=== PATIENT | male | born 1975 | race Hispanic/Latino ===

== ENCOUNTER 2021-05-16 06:47 | Observation (INO) | payer OTHER, SELFPAY ==
[2021-05-16 07:23] LABS: Absolute Lymphocytes (CBC) 1.6 K/uL (0.7-4.9); Basophils % 0.6 % (0-1.3); Hematocrit 42.1 % (39.6-49.0); Lymphocytes % 13.5 % (15.3-44.8); MPV 10.4 fL (7.6-11.3); RBC Red Blood Cell Count 4.38 M/uL (4.33-5.43)
[2021-05-16 07:39] LABS: ALT/SGPT 32 U/L (12-78); AST/SGOT 13 U/L (15-37); Alkaline Phosphatase 98 U/L (45-117); BUN Blood Urea Nitrogen 15 mg/dL (7-18); Bicarbonate 27 mmol/L (21-32); Bilirubin Direct 0.1 mg/dL (0-0.2); Bilirubin Total 0.9 mg/dL (0.2-1.0); Glucose Level 96 mg/dL (74-106); Lipase 86 U/L (73-393); Potassium 3.7 mmol/L (3.5-5.1); Protein, Total 8.1 g/dL (6.4-8.2); Sodium Level 141 mmol/L (136-145)
--- NOTE | 2021-05-16 07:59 | RAD REPORT ---
EXAM DESCRIPTION: CTAbdomen Pelvis W Contrast - 05/16/2021 7:31 am CLINICAL HISTORY: Abdominal pain. ABD PAIN COMPARISON: No comparisons TECHNIQUE: Biphasic CT imaging of the abdomen and pelvis was performed with 100 ml non-ionic IV cont rast. All CT scans are performed using dose optimization technique as appropriate and may include automated exposure control or mA/KV adjustment according to patient size. FINDINGS: The lung bases are clear. Hepatic steatosis. No focal liver lesions are identified. The gallbladder is unremarkable. Adrenal gl ands are unremarkable. Subcentimeter left renal lesion which is likely a cyst. No stones or hydroneph rosis. No bowel obstruction. Dilated appendix with adjacent inflammatory changes. Trace free fluid. N o retroperitoneal lymphadenopathy. The spleen is within normal limits. The pancreas is unremarkable. No fractures identified IMPRESSION: Acute nonperforated appendicitis.
[2021-05-16] MEDS ORDERED: NA CHLORIDE 0.9% 1,000 ML ONE (08:10)
[2021-05-16] MEDS ORDERED: ONDANSETRON 4 MG/2 ML VIAL ONE ×2 (08:10→11:01)
[2021-05-16] MEDS ORDERED: MORPHINE 4 MG/ML SYR ONE ×2 (08:10→12:26)
[2021-05-16] MEDS ORDERED: CEFOXITIN SODIUM 1 GM/VIAL ONE (08:45)
[2021-05-16] MEDS ORDERED: NA CHLORIDE 0.9% 50 ML ONE (08:45)
[2021-05-16] MEDS ORDERED: METRONIDAZOLE 500mg IVPB 500 MG/100 ML BAG IV ONE (08:45)
--- NOTE | 2021-05-16 09:10 | ER ---
Nurse's Notes [facility] Name: Charles Diaz Age: 46 yrs Sex: Male : 1975 Arrival Date: 05/16/2021 Time: 06:47 Bed 30 Private MD: Diagnosis: Unspecified acute appendicitis Presentation: 05/16 06:58 Chief complaint: Patient states: RLQ abdominal pain, tender in all 4 quads, nausea, x 3 jl7 days. Coronavirus screen: Client denies travel out of the [place] in the last 14 days. At this time, the client does not indicate any symptoms associated with coronavirus-19. Ebola Screen: No symptoms or risks identified at this time. Initial Sepsis Screen: Does the patient meet any 2 criteria? No. Patient's initial sepsis screen is negative. Does the patient have a suspected source of infection? No. Patient's initial sepsis screen is negative. Risk Assessment: Do you want to hurt yourself or someone else? Patient reports no desire to harm self or others. Onset of symptoms was May 14, 2021. 06:58 Method Of Arrival: Ambulatory [facility] 06:58 Acuity: MOHSEN 3 jl7 Historical: - Allergies: 07:00 No Known Allergies; jl7 - Home Meds: 07:00 None [Active]; jl7 - PMHx: 07:00 None; jl7 - PSHx: 07:00 None; jl7 - Immunization history:: Client reports having NOT received the Covid vaccine. - Social history:: Smoking status: Patient denies any tobacco usage or history of. Screenin:00 Abuse screen: Denies threats or abuse. Nutritional screening: No deficits noted. ap3 Tuberculosis screening: No symptoms or risk factors identified. Fall Risk None identified. Assessment: 07:59 General: Appears in no apparent distress. comfortable, Behavior is calm, cooperative, ap3 appropriate for age. Pain: Complains of pain in umbilical area Pain currently is 2 out of 10 on a pain scale. at worst was 8 out of 10 on a pain scale. Neuro: Level of Consciousness is awake, alert, obeys commands, Oriented to person, place, time, situation, Appropriate for age. Cardiovascular: Denies chest pain, shortness of breath. Respiratory: Airway is patent Respiratory effort is even, unlabored, Respiratory pattern is regular, symmetrical. GI: Bowel sounds present X 4 quads. Abd is soft and non tender X 4 quads. Reports pain with ingestion of food or water since Thursday05/14/2021. : No signs and/or symptoms were reported regarding the genitourinary system. EENT: No signs and/or symptoms were reported regarding the EENT system. Derm: No signs and/or symptoms reported regarding the dermatologic system. Musculoskeletal: Range of motion: intact in all extremities. Vital Signs: 06:58 Pulse 72; Resp 15; Temp 97.8; Pulse Ox 97% ; Pain 5/10; jl7 07:00 BP 129 / 88; jl7 08:31 Pulse 71; Resp 17; Pulse Ox 100% on R/A; Pain 1/10; ap3 08:32 BP 142 / 90; ap3 ED Course: 06:47 Patient arrived in ED. as 07:00 Triage completed. jl7 07:00 Arm band placed on right wrist. jl7 07:01 Leticia Rockwell FNP-C [facility]. kb 07:01 Marc Carson MD is Attending Physician. kb 07:11 Initial lab(s) drawn, by nh, sent to lab. Inserted saline lock: 20 gauge in right jl7 wrist, using aseptic technique. Blood collected. 07:22 Irma Hall RN is Primary Nurse. ap3 07:31 CT Abd/Pelvis - IV Contrast Only In Process Unspecified. EDMS 08:00 Patient has correct armband on for positive identification. Bed in low position. Call ap3 light in reach. Pulse ox on. NIBP on. Door closed. Noise minimized. 09:09 Aníbal Black MD is Hospitalizing Provider. kb 09:42 No provider procedures requiring assistance completed. Patient admitted, IV remains in ap3 place. Administered Medications: 07:57 Drug: morphine 4 mg Route: IVP; Site: right wrist; ap3 08:30 Follow up: Response: No adverse reaction ap3 07:58 Drug: NS 0.9% 1000 ml Route: IV; Rate: 1000 ml; Site: right wrist; ap3 09:22 Follow up: Response: No adverse reaction; IV Status: Completed infusion ap3 07:58 Drug: Zofran (Ondansetron) 4 mg Route: IVP; Site: right wrist; ap3 08:30 Follow up: Response: No adverse reaction; Nausea is decreased ap3 08:30 Drug: Flagyl (metroNIDAZOLE) 500 mg Volume: 100 ml; Route: IVPB; Rate: 200 ml/hr; ap3 Infused Over: 30 mins; Site: right wrist; 09:21 Follow up: Response: No adverse reaction; IV Status: Completed infusion ap3 09:21 Drug: Mefoxin (cefOXitin) 1 grams Route: IVPB; Infused Over: 30 mins; Site: right wrist;ap3 09:43 Follow up: IV Status: Infusion continued upon admission ap3 Outcome: 09:09 Decision to Hospitalize by Provider. kb 09:43 Admitted to OR accompanied by nurse, via wheelchair, with chart. ap3 09:43 Condition: good 09:43 Discharge instructions given to patient, Instructed on the need for admit, Demonstrated understanding of instructions. 09:43 Patient left the ED. ap3 Signatures: Dispatcher [employer] EDLeticia Gonzales, NIKITAC CARLOTA-Awilda Tony Jahala RN RN jl7 Irma Hall RN RN ap3
--- NOTE | 2021-05-16 09:10 | EDPHYS ---
Physician Documentation [facility] Name: Charles Diaz Age: 46 yrs Sex: Male : 1975 Arrival Date: 05/16/2021 Time: 06:47 Bed 30 Private MD: ED Physician Marc Carson HPI: 05/16 08:27 This 46 yrs old Male presents to ER via Ambulatory with complaints of kb Abdominal Pain. 08:27 The patient presents with abdominal pain that is diffuse. Onset: The symptoms/episode kb began/occurred 3 day(s) ago. The symptoms do not radiate. Associated signs and symptoms: Pertinent positives: nausea, Pertinent negatives: constipation, diarrhea, fever, vomiting. The symptoms are described as constant. Modifying factors: The symptoms are alleviated by nothing, the symptoms are aggravated by pressure. Severity of pain: At its worst the pain was moderate in the emergency department the pain is unchanged. The patient has not experienced similar symptoms in the past. The patient has not recently seen a physician. Historical: - Allergies: 07:00 No Known Allergies; jl7 - Home Meds: 07:00 None [Active]; jl7 - PMHx: 07:00 None; jl7 - PSHx: 07:00 None; jl7 - Immunization history:: Client reports having NOT received the Covid vaccine. - Social history:: Smoking status: Patient denies any tobacco usage or history of. ROS: 08:26 Constitutional: Negative for fever, chills, and weight loss. kb 08:26 Abdomen/GI: Positive for abdominal pain, nausea, Negative for vomiting, diarrhea. 08:26 All other systems are negative. Exam: 08:23 Constitutional: This is a well developed, well nourished patient who is awake, alert, kb and in no acute distress. Head/Face: Normocephalic, atraumatic. ENT: Moist Mucous membranes Respiratory: Respirations even and unlabored. No increased work of breathing, no retractions or nasal flaring. Skin: Warm, dry with normal turgor. Normal color. MS/ Extremity: Pulses equal, no cyanosis. Neurovascular intact. Full, normal range of motion. Neuro: Awake and alert, GCS 15, oriented to person, place, time, and situation. Moves all extremities. Normal gait. Psych: Awake, alert, with orientation to person, place and time. Behavior, mood, and affect are within normal limits. 08:23 Abdomen/GI: Inspection: abdomen appears normal, Bowel sounds: normal, in all quadrants, Palpation: soft, in all quadrants, mild abdominal tenderness, in the right upper quadrant, left upper quadrant and left lower quadrant, moderate abdominal tenderness, in the right lower quadrant. Vital Signs: 06:58 Pulse 72; Resp 15; Temp 97.8; Pulse Ox 97% ; Pain 5/10; jl7 07:00 BP 129 / 88; jl7 08:31 Pulse 71; Resp 17; Pulse Ox 100% on R/A; Pain 1/10; ap3 08:32 BP 142 / 90; ap3 MDM: 07:01 Patient medically screened. kb 08:08 Data reviewed: vital signs, nurses notes. Data interpreted: Pulse oximetry: on room air kb is 97 %. Interpretation: normal. Counseling: I had a detailed discussion with the patient and/or guardian regarding: the historical points, exam findings, and any diagnostic results supporting the discharge/admit diagnosis, lab results, radiology results, the need for further work-up and treatment in the hospital. 08:27 Physician consultation: Aníbal Black MD was called at 08:27. kb 08 07:01 Order name: Basic Metabolic Panel; Complete Time: 07:41 kb 05/16 07:01 Order name: CBC with Diff; Complete Time: 07:24 kb 05/16 07:02 Order name: Hepatic Function; Complete Time: 07:41 kb 08 07:02 Order name: Lipase; Complete Time: 07:41 kb 05/16 07:02 Order name: CT Abd/Pelvis - IV Contrast Only; Complete Time: 08:02 kb 05/16 08:03 Order name: COVID-19 : Document "Date of Symptom Onset" if Symptomatic. kb 05/16 07:01 Order name: IV Saline Lock; Complete Time: 07:11 kb 05/16 07:01 Order name: Labs collected and sent; Complete Time: 07:11 kb Administered Medications: 07:57 Drug: morphine 4 mg Route: IVP; Site: right wrist; ap3 08:30 Follow up: Response: No adverse reaction ap3 07:58 Drug: NS 0.9% 1000 ml Route: IV; Rate: 1000 ml; Site: right wrist; ap3 09:22 Follow up: Response: No adverse reaction; IV Status: Completed infusion ap3 07:58 Drug: Zofran (Ondansetron) 4 mg Route: IVP; Site: right wrist; ap3 08:30 Follow up: Response: No adverse reaction; Nausea is decreased ap3 08:30 Drug: Flagyl (metroNIDAZOLE) 500 mg Volume: 100 ml; Route: IVPB; Rate: 200 ml/hr; ap3 Infused Over: 30 mins; Site: right wrist; 09:21 Follow up: Response: No adverse reaction; IV Status: Completed infusion ap3 09:21 Drug: Mefoxin (cefOXitin) 1 grams Route: IVPB; Infused Over: 30 mins; Site: right wrist;ap3 09:43 Follow up: IV Status: Infusion continued upon admission ap3 Disposition Summary: 05/16/21 09:09 Hospitalization Ordered Hospitalization Status: Observation kb Provider: Aníbal Black Condition: Stable kb Problem: new kb Symptoms: are unchanged kb Bed/Room Type: Standard kb Location: Operating Room(05/16/21 09:19) kb Room Assignment: (05/16/21 09:19) kb Diagnosis - Unspecified acute appendicitis kb Forms: - Medication Reconciliation Form kb - SBAR form kb Addendum: 05/22/2021 07:17 Co-signature as Attending Physician, Marc Carson MD. r n Signatures: Dispatcher [employer] Leticia Hubbard, PUDDLER HELPER-C PUDDLER HELPER-Ckb Marc Carson MD MD rn Leal, Jahala RN RN jl7 Irma Hall RN RN ap3 Corrections: (The following items were deleted from the chart) 05/16 09:19 09:09 Telemetry/MedSurg (observation) kb kb 09:19 09:09 kb kb
[2021-05-16] MEDS ORDERED: MORPHINE 4 MG/ML SYR IV PRN (10:05)
[2021-05-16] MEDS ORDERED: ONDANSETRON 4 MG/2 ML VIAL IV PRN ×2 (10:05→11:17)
[2021-05-16] MEDS ORDERED: Ringers Lactate 1,000 ML IV ONE (10:06)
[2021-05-16] MEDS ORDERED: BUPIVACAINE 0.5% PF 10 ML VIAL ONE (10:13)
[2021-05-16] MEDS ORDERED: SUCCINYLCHOLINE 20 MG/ML (10 ML) IV ONE (10:16)
[2021-05-16] MEDS ORDERED: FENTANYL CITR 100 MCG/2 ML ONE (10:26)
[2021-05-16] MEDS ORDERED: LIDOCAINE 1% MPF 5 ML VIAL ONE (10:26)
[2021-05-16] MEDS ORDERED: ROCURONIUM 50 MG/5 ML VIAL IV ONE (10:26)
[2021-05-16] MEDS ORDERED: MIDAZOLAM HCL 2 MG/2 ML INJ ONE (10:26)
[2021-05-16] MEDS ORDERED: propofoL 200 MG/20 ML VIAL IV ONE (10:26)
[2021-05-16] MEDS ORDERED: KETOROLAC 30 MG/ML INJ ONE (11:01)
[2021-05-16] MEDS ORDERED: NEOSTIGMINE 1 MG/ML -5 ML ONE (11:01)
[2021-05-16] MEDS ORDERED: GLYCOPYRROLATE 0.2 MG/ML SYR ONE (11:01)
--- NOTE | 2021-05-16 11:10 | P.OP ---
Fisher Crab: Amaya WYATT Preoperative diagnosis: Acute Appendicitis Postoperative diagnosis: same with adhesions Primary procedure: Lap Appy, SIXTO Anesthesia: General Estimated blood loss: min Specimen: Appy Findings: as above Complications: None Transferred to: Recovery Room Condition: Good
[2021-05-16] MEDS ORDERED: HYDROMORPHONE HCL 1 MG/ML INJ IV PRN (11:17)
[2021-05-16] MEDS ORDERED: Mastisol Adhesive Liq ONE (11:34)
--- NOTE | 2021-05-16 12:59 | PREOPHP ---
Date of Admission: 05/16/2021 Reason For Admission: Abdominal pain. History Of Present Illness: The patient is a 46-year-old gentleman, who comes in with a 2-day histor y of diffuse periumbilical abdominal pain, mostly in the right side down, associated with nausea and vomiting. No constipation. No diarrhea. No fever. No blood in his stool. No dysuria or hematuria . Minimal anorexia. No sore throat, runny nose, cough, headaches, or dizziness. No chest pain. Review of Systems: Otherwise unremarkable. Past Medical History: Negative. Past Surgical History: Negative. Allergies: NO ALLERGIES. Social History: Does not smoke. Drinks occasionally. Family History: Noncontributory. Physical Examination: Vital Signs: Stable. He is currently afebrile. General: He is awake, alert, and oriented x3. Head and Neck: Cranial nerves 2 through 12 are grossly within normal limits. No neck masses. No JV D. Throat clear. Neck is supple. Chest: Clear. Heart: S1, S2. Abdomen: Soft. Positive right lower quadrant tenderness with rebound. No rigidity or guarding. Extremity: Adequately perfused. Nontender. Neuro: Nonfocal. Laboratory Data: White count is 11.7 with a left shift. CT of the abdomen and pelvis reviewed, whic h shows the dilated appendix with adjacent inflammatory changes, trace free fluid, no retroperitoneal lymphadenopathy. Assessment: Acute nonperforated appendicitis. Plan: Admit, n.p.o., IV fluid, IV antibiotic, to the OR for laparoscopic appendectomy, possible open . The patient understands the risks, benefits, and alternatives and agrees to procedure. JEVON/CANDACE Voice ID: [id number]
--- NOTE | 2021-05-16 13:34 | OP ---
Date of Procedure: 05/16/2021 Surgeon: Aníbal Black MD Athletic Gear Custodian: EDMUNDO Ambriz. Preoperative Diagnosis: Acute appendicitis. Postoperative Diagnosis: Acute appendicitis, extensive adhesions in the right side of the abdomen. Procedure Performed: Laparoscopic appendectomy and lysis of adhesions. Estimated Blood Loss: Minimal. Specimen: Appendix. Finding: As above. Anesthesia: General. Complications: None. Disposition: The patient tolerated the procedure in stable condition and taken to Recovery in good g eneral condition. Procedure In Detail: The patient was brought to the OR and placed in supine position. General anest hesia begun. The patient was prepped and draped in usual sterile fashion. Marcaine 0.5% was infiltr ated locally. A 15-blade was used to make a 1 cm supraumbilical midline incision. Subcutaneous tiss ue was divided. Fascia identified and divided. A #1 Vicryl stay suture was placed. Peritoneal cavi ty was entered with blunt dissection. A 12 mm trocar was placed under direct vision and then pneumop eritoneum was established. A 5 mm trocar was placed in the suprapubic region and a [address] d in the left lower quadrant. Laparoscopy revealed extensive adhesions in the right lower quadrant a nd the appendix was behind all these adhesions. LigaSure was used for approximately 10-15 minutes to lyse all these adhesions, to be able to expose the cecum and therefore the appendix which was acutel y inflamed and adherent to the terminal ileum. Sharp and blunt dissection were used to separate the appendix away from the terminal ileum and the base of the appendix was clearly identified as well as the mesoappendix, and a LEIDY stapling device was sequentially used to divide both structures and then the appendix was retrieved through the umbilicus via an EndoCatch bag. Right lower quadrant irrigate d. Effluent clear. No evidence of bleeding or bowel injury appreciated. Subsequently, all trocars were removed under direct vision. Stay sutures were tied to each other to reapproximate the fascial defect. Subcutaneous wounds irrigated. Bleeding controlled cautery. A 3-0 chromic used to approxim ate the subcutaneous tissue and close the skin. Sterile dressing applied. The patient was awakened and taken to Recovery in good general condition. /MODL Voice ID: [id number] Report ID: [id number]
[2021-05-16 14:50] VITALS: BMI 29.2
[2021-05-16] MEDS: NA CHLORIDE 0.9% 1,000 ML IV SCH ×3 (15:09→21:44)
[2021-05-16] MEDS: METRONIDAZOLE 500mg IVPB 500 MG/100 ML BAG IV SCH (15:58)
[2021-05-16] MEDS: CIPROFLOXACIN 400mg IV 400 MG/200 ML BAG IV SCH (21:43)
[2021-05-16] MEDS: HYDROCODONE/APAP 7.5/325 MG TAB PO PRN (21:44)
[2021-05-17] MEDS: METRONIDAZOLE 500mg IVPB 500 MG/100 ML BAG IV SCH ×2 (00:33→09:09)
[2021-05-17] MEDS: NA CHLORIDE 0.9% 1,000 ML IV SCH ×2 (02:05→05:22)
[2021-05-17] MEDS: HYDROCODONE/APAP 7.5/325 MG TAB PO PRN (05:21)
[2021-05-17 05:28] LABS: Absolute Lymphocytes (CBC) 2.1 K/uL (0.7-4.9); Hematocrit 37.9 % (39.6-49.0); Lymphocytes % 24.8 % (15.3-44.8); MPV 10.4 fL (7.6-11.3)
[2021-05-17] MEDS: CIPROFLOXACIN 400mg IV 400 MG/200 ML BAG IV SCH (10:07)
--- NOTE | 2021-05-17 11:41 | DS ---
Date of Discharge: 05/17/2021 Admitting Diagnosis: Acute appendicitis. Discharge Diagnosis: Acute appendicitis with adhesions. Procedure Performed: Laparoscopic appendectomy with lysis of adhesions. Hospital Course: The patient is a 46-year-old male who underwent the aforementioned procedure. Post operatively, he is tolerating diet, ambulating, pain control on p.o. pain medication, afebrile, there fore patient will be discharged to home. Disposition: Home. Condition: Stable. Discharge Instructions: Resume home meds and diet. Activity as tolerated. No heavy lifting. Remov e outer dressing in a.m. Shower. Keep wound clean and dry. Keep Steri-Strips on at all times. Cip ro 500 mg p.o. q.12, Flagyl 500 mg p.o. q.8, Tylenol No.3 one tablet p.o. q.4 p.r.n. pain. Follow up in my office in 1 week. Call for appointment. JOSÉ Voice ID: [id number] Report ID: [id number]
[2021-05-17 13:04] VITALS: O2SAT 95
[2021-05-17 15:03] VITALS: BP 135/85; TEMP 98.6
== END 2021-05-17 13:49 | disposition home or self-care (01) ==
LOC: ER 06:47 → ERHOLD 09:21 → 2ND 13:28
PROVIDERS: ADMIT Surgery; ATTEND Surgery
PROC: 0DNW4ZZ Release Peritoneum, Percutaneous Endoscopic Approach (ICD-10-PCS; 2021-05-16)
PROC: 0DTJ4ZZ Resection of Appendix, Percutaneous Endoscopic Approach (ICD-10-PCS; principal; 2021-05-16 12:45)
DX: K35.80 Unspecified acute appendicitis (principal); K66.0 Peritoneal adhesions (postprocedural) (postinfection); Z20.822 Contact with and (suspected) exposure to COVID-19
CPT/HCPCS: 96365; 96367; 96361; 85025 ×2; 80048; 36415; 82565; 80076; 88304; 83690; 74177; 94010; 96375; 99285; 44970; 49329; U0003; Q9967; J2704; J0330; J2250; J3010; J2710; J7120; J7030 ×3; J0694; J2405 ×2; J0744 ×2; G0378 ×6